=== PATIENT | female | born 1975 | race Caucasian/White ===

== ENCOUNTER 2016-11-18 13:34 | Emergency (ER) | payer BC ==
--- NOTE | 2016-11-18 14:26 | UC ---
Cardiac HPI - HPI Summary HPI Summary: This is an otherwise healthy 41 yo female who presents with c/o CP with intermittent L arm pain x 3d. She reports recent in the family which has caused a significant amount of stress. No associated cough, n/v/d. No recent illness. No exacerbating or relieving factors. Reports assoc dyspnea. - History of Current Complaint Chief Complaint: UCChestPain Stated Complaint: CHEST PAIN, NUMBNESS IN ARM - Allergy/Home Medications Allergies/Adverse Reactions: Allergies Allergy/AdvReac Type Severity Reaction Status Date / Time No Known Allergies Allergy Verified 03/16/15 15:47 PMH/Surg Hx/FS Hx/Imm Hx Previously Healthy: Yes Endocrine History Of: Denies: Diabetes Cardiovascular History Of: Denies: Pacemaker/ICD GI/ History Of: Denies: Renal Disease Cancer History Of: Denies: Breast Cancer - Surgical History Surgical History: Yes Surgery Procedure, Year, and Place: fibroids removed. appendix - Family History Known Family History: Positive: Hypertension Family History: NON CONTRIBUTORY - Social History Alcohol Use: Rare Substance Use Type: None Smoking Status (MU): Never Smoked Tobacco Review of Systems Constitutional: Negative Skin: Negative Eyes: Negative ENT: Negative Respiratory: Shortness Of Breath Cardiovascular: Chest Pain Gastrointestinal: Negative Genitourinary: Negative Motor: Negative Neurovascular: Negative Musculoskeletal: Negative Neurological: Negative Psychological: Anxious All Other Systems Reviewed And Are Negative: Yes Physical Exam Triage Information Reviewed: Yes Vital Signs: Initial Vital Signs Temp 97.3 F 11/18/16 13:38 Vital Signs Reviewed: Yes Respiratory Exam: Normal Respiratory: Positive: Chest non-tender, Lungs clear, Normal breath sounds Cardiovascular Exam: Normal Cardiovascular: Positive: RRR, No Murmur Abdomen Description: Positive: Nontender Diagnostics - EKG Cardiac Rate: NL Cardiac Rhythm: Sinus: Normal Ectopy: None ST Segment: Normal Re-Evaluation - Re-Evaluation First Eval Re-Evaluation Time: 14:30 Change: Unchanged Comment: Reviewed recommendations with patient's - Assessment/Plan Course Of Treatment: Recommended patient proceed to ED for further evaluation. She is stable without ST segment changes. The fact that her symptoms have been persistent for 3 days without EKG changes makes this less likely to be ACS, but PE or pericarditis are high on the differential which can not be adequately evaluated in the urgent care setting - Differential Diagnoses - Chest Pain Differential Diagnosis/HQI/PQRI: ACS, Chest Wall, Pulmonary Edema, Pulmonary Embolism - Clinical Impression Provider Diagnoses: 1. Chest pain - Physician Notifications Discussed Patient Care With: Matthew Rai MD Time Discussed With Above Provider: 14:30 Instructed by Provider To: MD Will See In ED Discharge - Discharge Plan Condition: Stable Disposition: OTHER Discharge Disposition Comment: [facility] Emergency Department Referrals: Susannah Miller MD [Primary Care Provider] - Additional Instructions: 1. Please proceed to the EMERGENCY DEPARTMENT 2. You require evaluation for life threatening heart/lung conditions
== END 2016-11-18 14:30 ==
LOC: UCEAST 13:34
DX: R07.89 Other chest pain (principal); M79.602 Pain in left arm
CPT/HCPCS: 99211; G0463

== ENCOUNTER 2016-11-18 15:29 | Emergency (ER) | payer BC ==
[2016-11-18 16:44] LABS: Hematocrit 35 % (35-47); Hemoglobin 11.2 g/dl (12.0-16.0); Mean Corpuscular HGB Conc 32 g/dl (31-36); Mean Corpuscular Hemoglobin 24 pg (27-31); Mean Corpuscular Volume 76 fL (80-97); Mean Platelet Volume 7 um3 (7.4-10.4); Red Blood Count 4.58 10^6/ul (4.0-5.4); Red Cell Distribution Width 15 % (10.5-15); White Blood Count 10.6 10^3/ul (3.5-10.8)
[2016-11-18 17:01] LABS: Troponin I 0.01 ng/mL (<0.04)
[2016-11-18 17:14] LABS: Albumin 3.9 g/dL (3.2-5.2); BUN/Creatinine Ratio 25.4 (8-20); Calcium 9.2 mg/dL (8.6-10.3); EGFR African American 125.4 (>60); EGFR Non-African American 97.5 (>60); Globulin 3.2 g/dL (2-4); Potassium 3.8 mmol/L (3.5-5.0); Total Bilirubin 0.4 mg/dL (0.2-1.0); Total Protein 7.1 g/dL (6.4-8.9)
--- NOTE | 2016-11-18 17:39 | RAD ---
INDICATION: LEFT side chest pain. History of pneumonia. COMPARISON: September 22, 2010 CT chest. TECHNIQUE: Dual energy PA and routine lateral views of the chest were obtained. REPORT: Bilateral first costochondral calcifications noted. Clear lungs and pleural spaces. Negative for pneumothorax. The heart, pulmonary vasculature, and mediastinal contours are unremarkable. IMPRESSION: No evidence for acute intrathoracic disease.
[2016-11-18] MEDS ORDERED: HYDROcodone/ACETAMIN 5-325 MG* 1 TAB PO ONE ×2 (18:13→18:14)
--- NOTE | 2016-11-18 18:20 | ED ---
Feliberto Arce Michael, scribed for Jensen Estevez MD on 11/18/16 at 1623 . HPI Chest Pain - HPI Summary HPI Summary: 41 y/o female was referred to the ED from [facility] presenting with constant chest pain that started 3 days ago. The onset of chest pain was described as sharp and severe for 2 minutes. Since the initial onset, the chest pain has been constant and described as an ache. The pt reports that the chest pain is aggravated with palpation, deep breathes, and movement. The pain is not alleviated with ASA. She also states the pain radiates to her LUE. The pt also c /o SOB and DELGADO. Currently, the DELGADO has been spontaneously alleviated. She denies abd pain and bilateral LE swelling. The PMHx is significant for HTN. - History of Current Complaint Chief Complaint: EDChestPainROMI Time Seen by Provider: 11/18/16 16:17 Hx Obtained From: Patient, Medical Records Onset/Duration: Started Days Ago, Still Present Timing: Constant Initial Severity: Moderate Current Severity: Moderate Pain Intensity: 7 Pain Scale Used: 0-10 Numeric Chest Pain Location: Left Anterior Chest Pain Radiates: Yes Chest Pain Radiates To:: Arm - LUE Character: Dull/Aching, Sharp/Stabbing Aggravating Factor(s): Movement, Deep Breaths, Other: - palpation Alleviating Factor(s): Nothing Associated Signs and Symptoms: Positive: Negative - bilateral LE swelling, Chest Pain, Headaches, Shortness of Breath. Negative: Abdominal Pain - Allergy/Home Medications Allergies/Adverse Reactions: Allergies Allergy/AdvReac Type Severity Reaction Status Date / Time No Known Allergies Allergy Verified 11/18/16 15:33 PMH/Surg Hx/FS Hx/Imm Hx Endocrine/Hematology History: Denies: Hx Diabetes Cardiovascular History: Reports: Hx Hypertension Denies: Hx Pacemaker/ICD History: Denies: Hx Dialysis, Hx Renal Disease Sensory History: Denies: Hx Hearing Aid Psychiatric History: Denies: Hx Panic Disorder - Cancer History Hx Chemotherapy: No Hx Radiation Therapy: No - Surgical History Surgery Procedure, Year, and Place: fibroids removed. appendix Infectious Disease History: No Infectious Disease History: Denies: History Other Infectious Disease, Traveled Outside the [place] in Last 30 Days - Family History Known Family History: Positive: Hypertension - Social History Occupation: Employed Full-time Lives: With Family Alcohol Use: Rare Substance Use Type: Reports: None Smoking Status (MU): Never Smoked Tobacco Review of Systems Negative: Fever Positive: Chest Pain Positive: Shortness Of Breath Negative: Abdominal Pain Negative: Edema - bilateral LE Positive: Headache All Other Systems Reviewed And Are Negative: Yes Physical Exam Triage Information Reviewed: Yes Vital Signs On Initial Exam: Initial Vitals Temp Pulse Resp BP Pulse Ox 98.0 F 86 18 140/82 100 11/18/16 15:31 11/18/16 15:31 11/18/16 15:31 11/18/16 15:31 11/18/16 15:31 Vital Signs Reviewed: Yes Appearance: Positive: Pain Distress, Obese Skin: Positive: Warm, Skin Color Reflects Adequate Perfusion, Dry Head/Face: Positive: Normal Head/Face Inspection Eyes: Positive: Normal ENT: Positive: Normal ENT inspection Neck: Positive: Supple, Nontender Respiratory/Lung Sounds: Positive: Clear to Auscultation, Breath Sounds Present Cardiovascular: Positive: RRR Abdomen Description: Positive: Nontender, Soft Bowel Sounds: Positive: Present Musculoskeletal: Positive: Other - tender left anterior lateral chest wall Neurological: Positive: Normal Psychiatric: Positive: Normal, Affect/Mood Appropriate Diagnostics - Vital Signs Vital Signs Temp Pulse Resp BP Pulse Ox 11/18/16 15:31 98.0 F 86 18 140/82 100 - Laboratory Lab Results: Lab Results 11/18/16 11/18/16 11/18/16 Range/Units 16:17 16:17 16:17 WBC 10.6 (3.5-10.8) 10^3/ul RBC 4.58 (4.0-5.4) 10^6/ul Hgb 11.2 L (12.0-16.0) g/dl Hct 35 (35-47) % MCV 76 L (80-97) fL MCH 24 L (27-31) pg MCHC 32 (31-36) g/dl RDW 15 (10.5-15) % Plt Count 279 (150-450) 10^3/ul MPV 7 L (7.4-10.4) um3 Neut % (Auto) 65.9 (38-83) % Lymph % (Auto) 26.6 (25-47) % [place] % (Auto) 5.7 (1-9) % Eos % (Auto) 1.5 (0-6) % Baso % (Auto) 0.3 (0-2) % Absolute Neuts (auto) 7.0 (1.5-7.7) 10^3/ul Absolute Lymphs (auto) 2.8 (1.0-4.8) 10^3/ul Absolute Monos (auto) 0.6 (0-0.8) 10^3/ul Absolute Eos (auto) 0.2 (0-0.6) 10^3/ul Absolute Basos (auto) 0 (0-0.2) 10^3/ul Absolute Nucleated RBC 0 10^3/ul Nucleated RBC % 0 INR (Anticoag Therapy) 0.93 (0.89-1.11) D-Dimer, Quantitative < 200 (Less Than 230) ng/mL Sodium 136 (133-145) mmol/L Potassium 3.8 (3.5-5.0) mmol/L Chloride 105 (101-111) mmol/L Carbon Dioxide 26 (22-32) mmol/L Anion Gap 5 (2-11) mmol/L BUN 17 (6-24) mg/dL Creatinine 0.67 (0.51-0.95) mg/dL Est GFR ( Amer) 125.4 (>60) Est GFR (Non-Af Amer) 97.5 (>60) BUN/Creatinine Ratio 25.4 H (8-20) Glucose 102 H (70-100) mg/dL Lactic Acid (0.5-2.0) mmol/L Calcium 9.2 (8.6-10.3) mg/dL Total Bilirubin 0.40 (0.2-1.0) mg/dL AST 15 (13-39) U/L ALT 24 (7-52) U/L Alkaline Phosphatase 57 (34-104) U/L Troponin I 0.01 (<0.04) ng/mL Total Protein 7.1 (6.4-8.9) g/dL Albumin 3.9 (3.2-5.2) g/dL Globulin 3.2 (2-4) g/dL Albumin/Globulin Ratio 1.2 (1-3) // Range/Units 16:17 WBC (3.5-10.8) 10^3/ul RBC (4.0-5.4) 10^6/ul Hgb (12.0-16.0) g/dl Hct (35-47) % MCV (80-97) fL MCH (27-31) pg MCHC (31-36) g/dl RDW (10.5-15) % Plt Count (150-450) 10^3/ul MPV (7.4-10.4) um3 Neut % (Auto) (38-83) % Lymph % (Auto) (25-47) % [place] % (Auto) (1-9) % Eos % (Auto) (0-6) % Baso % (Auto) (0-2) % Absolute Neuts (auto) (1.5-7.7) 10^3/ul Absolute Lymphs (auto) (1.0-4.8) 10^3/ul Absolute Monos (auto) (0-0.8) 10^3/ul Absolute Eos (auto) (0-0.6) 10^3/ul Absolute Basos (auto) (0-0.2) 10^3/ul Absolute Nucleated RBC 10^3/ul Nucleated RBC % INR (Anticoag Therapy) (0.89-1.11) D-Dimer, Quantitative (Less Than 230) ng/mL Sodium (133-145) mmol/L Potassium (3.5-5.0) mmol/L Chloride (101-111) mmol/L Carbon Dioxide (22-32) mmol/L Anion Gap (2-11) mmol/L BUN (6-24) mg/dL Creatinine (0.51-0.95) mg/dL Est GFR ( Amer) (>60) Est GFR (Non-Af Amer) (>60) BUN/Creatinine Ratio (8-20) Glucose (70-100) mg/dL Lactic Acid 1.1 (0.5-2.0) mmol/L Calcium (8.6-10.3) mg/dL Total Bilirubin (0.2-1.0) mg/dL AST (13-39) U/L ALT (7-52) U/L Alkaline Phosphatase (34-104) U/L Troponin I (<0.04) ng/mL Total Protein (6.4-8.9) g/dL Albumin (3.2-5.2) g/dL Globulin (2-4) g/dL Albumin/Globulin Ratio (1-3) Result Diagrams: 11/18/16 16:17 11/18/16 16:17 Lab Statement: Any lab studies that have been ordered have been reviewed, and results considered in the medical decision making process. - Radiology CXR Xray Interpretation: No Acute Changes Radiology Interpretation Completed By: Radiologist - EKG EK EKG Rhythm: Sinus Rhythm - [address] Segment: Normal Ectopy: None EKG Comparison: No Significant Change - from 01/09/16 Chest Pain Course/Dx - Course Course Of Treatment: Lauren Arnold presented with the acute onset of a spasm- type, sharp pain in her left chest accompanied by SOB which woke her up 3 nights ago. She has had a dull ache in the same area ever since which is exacerbated by moving her left arm around and taking a very deep breath. She was found to have reproducible chest wall tenderness and a normal W/U here including a d-dimer. Her Well's criteria is essentially 0. - Diagnoses Provider Diagnoses: Chest wall pain Discharge - Discharge Plan Condition: Stable Disposition: HOME Prescriptions: HYDROcodone/ACETAMIN 5-325 MG* [[place] 5-325 TAB*] 1 tab PO Q6H PRN #20 tab MDD 4 PRN Reason: Pain Patient Education Materials: Chest Wall Pain (ED) Referrals: Susannah Miller MD [Primary Care Provider] - Additional Instructions: You will follow up with Dr. Miller within the next 2-3 days. The documentation as recorded by the Feliberto shields Michael accurately reflects the service I personally performed and the decisions made by , Jensen Estevez MD.
[2016-11-18 18:40] VITALS: BP 150/86
[2016-11-19 04:11] LABS: C Reactive Protein 12.05 mg/L (< 5.00)
== END 2016-11-18 18:41 | disposition home or self-care (01) ==
LOC: ED 15:29
DX: R07.9 Chest pain, unspecified (principal); R06.02 Shortness of breath; R51 Headache; I10 Essential (primary) hypertension; M79.602 Pain in left arm
CPT/HCPCS: 36415; 71020; 80053; 83605; 84484; 85025; 85379; 85610; 86140; 93005; 99211; 99282; G0463

== ENCOUNTER 2017-04-08 18:29 | Emergency (ER) | payer BC ==
[2017-04-08 18:49] VITALS: BP 133/70
--- NOTE | 2017-04-08 19:44 | UC ---
UC General HPI - HPI Summary HPI Summary: PT HAD EMBRYO IMPLANTATION TODAY WITH DR. BENTON IN [place] ([facility] WAS CALLED LATER IN THE DAY AND TOLD SHE NEEDED PROGESTERONE SUPPLEMENTATION. IS HERE WITH MEDICATION LOOKING FOR ASSISTANCE WITH INJECTION. - History of Current Complaint Chief Complaint: UCGeneralIllness Stated Complaint: MED AMINISTRATION Time Seen by Provider: 04/08/17 19:11 Hx Obtained From: Patient Current Severity: None Associated Signs & Symptoms: Positive: Other - NONE - Allergy/Home Medications Allergies/Adverse Reactions: Allergies Allergy/AdvReac Type Severity Reaction Status Date / Time No Known Allergies Allergy Verified 11/18/16 15:33 Home Medications: Home Medications Aspirin [Eq Aspirin] 325 mg PO 04/08/17 [History] Vitamin [Calna] 1 tab PO 04/08/17 [History] PMH/Surg Hx/FS Hx/Imm Hx Previously Healthy: Yes - Surgical History Surgical History: Yes Surgery Procedure, Year, and Place: fibroids removed. appendix - Family History Known Family History: Positive: Hypertension - Social History Alcohol Use: Rare Substance Use Type: None Smoking Status (MU): Never Smoked Tobacco Review of Systems Constitutional: Negative Respiratory: Negative Cardiovascular: Negative Gastrointestinal: Negative All Other Systems Reviewed And Are Negative: Yes Physical Exam Triage Information Reviewed: Yes Appearance: Well-Appearing, No Pain Distress, Well-Nourished Vital Signs: Initial Vital Signs Temp 97.8 F 04/08/17 18:38 Pulse 74 04/08/17 18:38 Resp 18 04/08/17 18:38 BP 133/70 04/08/17 18:38 Pulse Ox 99 04/08/17 18:38 Vital Signs Reviewed: Yes Eyes: Positive: Conjunctiva Clear ENT: Positive: Hearing grossly normal Neck: Positive: Supple Respiratory: Positive: No respiratory distress, No accessory muscle use Cardiovascular: Positive: Pulses Normal Abdomen Description: Positive: Soft Musculoskeletal: Positive: No Edema Neurological: Positive: Alert Psychological: Positive: Age Appropriate Behavior Skin: Negative: rashes Course/Dx - Differential Dx - Multi-Symptom Provider Diagnoses: MEDICATION INJECTION Discharge - Discharge Plan Condition: Stable Disposition: HOME Referrals: Susannah Miller MD [Primary Care Provider] - 1 Day Additional Instructions: 50MG (1ML) OF PROGESTERONE OIL INTRAMUSCULAR INJECTION TO RIGHT GLUTEUS MUSCLE TODAY AT 7:30PM. PLEASE CALL DR. BENTON'S OFFICE TOMORROW TO CONFIRM HOW MANY DAYS YOU ARE SUPPOSED TO BE INJECTING THIS MEDICINE. CALL DR. MILLER'S OFFICE TOMORROW TO SEE IF YOU CAN SCHEDULE NURSE VISITS FOR FUTURE INJECTIONS.
== END 2017-04-08 19:45 | disposition home or self-care (01) ==
LOC: UCEAST 18:29
DX: E34.9 Endocrine disorder, unspecified (principal)
CPT/HCPCS: 96372; 99211; G0463

== ENCOUNTER 2019-01-19 16:43 | Emergency (ER) | payer BC ==
--- NOTE | 2019-01-19 17:58 | ED ---
HPI Chest Pain - HPI Summary HPI Summary: A 43 y/o [place] [facility] [place] with CP onset middle of the night. The pain woke her from sleep and radiates to her L shoulder and back. Associated sx: elevated BP, severe DELGADO, photophobia, tenderness to scalp and face skin, subjective fever. Denies chills, n/v, pedal edema. She's tried OTC medications to no relief. Aggravating factors: movement. She takes Amlodipine BID. She sees Dr. Whiteside, PCP, at [facility]. She notes her mom has similar sx when she began menopause at age 43. - History of Current Complaint Chief Complaint: EDChestPainROMI Time Seen by Provider: 01/19/19 17:49 Hx Obtained From: Patient Onset/Duration: Started Hours Ago, Atraumatic, Still Present Timing: Constant Initial Severity: Moderate Current Severity: Severe Pain Intensity: 9 Pain Scale Used: 0-10 Numeric Chest Pain Radiates: Yes Chest Pain Radiates To:: Back, Shoulder - L shoulder Aggravating Factor(s): Movement Associated Signs and Symptoms: Positive: Headaches, Fever - subjective, Other: - pos: elevated BP, photophobia, tenderness to scalp/face. neg: chills. Negative: Nausea, Vomiting, Edema - Allergy/Home Medications Allergies/Adverse Reactions: Allergies Allergy/AdvReac Type Severity Reaction Status Date / Time No Known Allergies Allergy Verified 11/18/16 15:33 Home Medications: Home Medications Aspirin TAB* [Aspirin 325 MG TAB*] 325 mg PO DAILY 01/19/19 [History Confirmed 01/19/19] Cholecalciferol TAB* [Vitamin D TAB*] 400 unit PO DAILY 01/19/19 [History Confirmed 01/19/19] Vitamin E Mixed [Vitamin E] 1,000 unit PO DAILY 01/19/19 [History Confirmed ] amLODIPine TAB* [Norvasc 5 mg TAB*] 2.5 mg PO BID 01/19/19 [History Confirmed ] PMH/Surg Hx/FS Hx/Imm Hx Previously Healthy: No Endocrine/Hematology History: Denies: Hx Diabetes Cardiovascular History: Reports: Hx Hypertension Denies: Hx Pacemaker/ICD Respiratory History: Reports: Other Respiratory Problems/Disorders - PNEUMONIA History: Denies: Hx Dialysis, Hx Renal Disease Sensory History: Denies: Hx Hearing Aid Psychiatric History: Denies: Hx Panic Disorder - Cancer History Hx Chemotherapy: No Hx Radiation Therapy: No - Surgical History Surgery Procedure, Year, and Place: fibroids removed. appendix Infectious Disease History: No Infectious Disease History: Denies: History Other Infectious Disease, Traveled Outside the [place] in Last 30 Days - Family History Known Family History: Positive: Hypertension - Social History Occupation: Employed Full-time - SELF Lives: With Family Alcohol Use: Rare Hx Substance Use: No Substance Use Type: Reports: None Hx Tobacco Use: No Smoking Status (MU): Never Smoked Tobacco Review of Systems Positive: Fever - subjective. Negative: Chills Positive: Photophobia Positive: Chest Pain, Other - pos: elevated BP Negative: Vomiting, Nausea Negative: Edema Positive: Headache All Other Systems Reviewed And Are Negative: Yes Physical Exam - Summary Physical Exam Summary: Constitutional: Well-developed, Well-nourished, Alert. (-) Distressed Skin: Warm, Dry HENT: Normocephalic; Atraumatic. Mild tenderness to scalp bilaterally. Eyes: Conjunctiva normal Neck: Musculoskeletal ROM normal neck. (-) JVD, (-) Stridor, (-) Tracheal deviation Cardio: Rhythm regular, rate normal, Heart sounds normal; Intact distal pulses; The pedal pulses are 2+ and symmetric. Radial pulses are 2+ and symmetric. (-) Murmur Pulmonary/Chest wall: Effort normal. (-) Respiratory distress, (-) Wheezes, (-) Rales. Tenderness to chest wall. Abd: Soft, (-) tenderness, (-) Distension, (-) Guarding, (-) Rebound Musculoskeletal: (-) Edema. Tenderness to L shoulder, limited ROM L shoulder. Lymph: (-) Cervical adenopathy Neuro: Alert, Oriented x3 Psych: Mood and affect Normal Triage Information Reviewed: Yes Vital Signs On Initial Exam: Initial Vitals Temp Pulse Resp BP Pulse Ox 97.9 F 77 18 145/105 99 01/19/19 16:48 01/19/19 16:48 01/19/19 16:48 01/19/19 16:48 01/19/19 16:48 Vital Signs Reviewed: Yes Diagnostics - Vital Signs Vital Signs Temp Pulse Resp BP Pulse Ox 01/19/19 16:48 97.9 F 77 18 145/105 99 - Laboratory Result Diagrams: 01/19/19 18:07 01/19/19 18:07 Lab Statement: Any lab studies that have been ordered have been reviewed, and results considered in the medical decision making process. - Radiology CXR Radiology Interpretation Completed By: ED Physician Summary of Radiographic Findings: No acute process. - EKG 192 Cardiac Rate: NL - 80 bpm EKG Rhythm: Sinus Rhythm Summary of EKG Findings: Normal sinus rhythm at 80 bpm, normal ID, normal QRS, normal QTc, normal axis, normal ST, normal T-waves, normal EKG. Re-Evaluation - Re-Evaluation 1 Re-Evaluation Time: 20:09 Change: Improved Comment: Discussing results with pt. She appears better. Will give her Flexeril. Chest Pain Course/Dx - Course Course Of Treatment: Pt is a 43 y/o F [place] [facility] [place] with CP onset in the middle of the night. The pain woke her from sleep and radiates to her L shoulder and back. Associated sx: elevated BP, severe DELGADO, photophobia, tenderness to scalp and face skin, subjective fever. CXR shows no acute process. Lab work shows low Hgb, MCV, MCH, MPV; elevated CRP and BUN/C ratio. EKG is NSR at 80bpm, normal EKG. Will discharge patient home. - Diagnoses Provider Diagnoses: Chest pain, Headache, Neck pain Discharge - Sign-Out/Discharge Documenting (check all that apply): Patient Departure - D/C Patient Received Moderate/Deep Sedation with Procedure: No - Discharge Plan Condition: Improved Disposition: HOME Prescriptions: Cyclobenzaprine TAB* [Flexeril 10 MG TAB*] 10 mg PO TID PRN #15 tab PRN Reason: Pain Patient Education Materials: Chest Pain (ED), Neck Pain (ED) Print Language: VIETNAMESE Referrals: Susannah Miller MD [Primary Care Provider] - - Billing Disposition and Condition Condition: IMPROVED Disposition: Home - Attestation Statements Document Initiated by Scribe: Yes Documenting Scribe: Alexander Vincent Provider For Whom Scribe is Documenting (Include Credential): Dr. April Sylvester MD Scribe Attestation: Claude, Alexander Vincent, scribed for Dr. April Sylvester MD on at 2339. Scribe Documentation Reviewed: Yes Provider Attestation: The documentation as recorded by the scribe, Adeelg Carlton accurately reflects the service I personally performed and the decisions made by me, Dr. April Sylvester MD Status of Scribe Document: Viewed
[2019-01-19] MEDS ORDERED: Aspirin 81 mg CHEW TAB* 81 MG TAB.CHEW PO ONE (18:18)
[2019-01-19 18:25] LABS: ABS Basophils 0.1 10^3/ul (0-0.2); ABS Eosinophils 0.1 10^3/ul (0-0.6); ABS Lymphocytes 2.7 10^3/ul (1.0-4.8); ABS Monocytes 0.7 10^3/ul (0-0.8); ABS Neutrophils 5.2 10^3/ul (1.5-7.7); ABS Nucleated RBC 0 10^3/ul; Eosinophil % 1.7 %; Hematocrit 35 % (33-41); Hemoglobin 11.4 g/dL (12.0-16.0); Lymphocyte % 30.7 %; Mean Corpuscular HGB Conc 33 g/dL (31-36); Mean Corpuscular Hemoglobin 25 pg (27-31); Mean Corpuscular Volume 77 fL (80-97); Mean Platelet Volume 7.3 fL (7.4-10.4); Nucleated Red Blood Cells % 0.1; Platelet Count 293 10^3/uL (150-450); Red Blood Count 4.51 10^6 /uL (3.70-4.87); Red Cell Distribution Width 15 % (10.5-15); White Blood Count 8.8 10^3/uL (3.5-10.8)
[2019-01-19 18:45] LABS: ALT 28 U/L (7-52); AST 18 U/L (13-39); Albumin/Globulin Ratio 1.3 (1-3); Alkaline Phosphatase 67 U/L (34-104); Anion Gap 6 mmol/L (2-11); BUN/Creatinine Ratio 24.1 (8-20); Blood Urea Nitrogen 13 mg/dL (6-24); C Reactive Protein 8.26 mg/L (<8.01); CO2 Carbon Dioxide 25 mmol/L (22-32); Calcium 9.1 mg/dL (8.6-10.3); Chloride 106 mmol/L (101-111); EGFR African American 149.8 (>60); EGFR Non-African American 123.8 (>60); Globulin 3.1 g/dL (2-4); Glucose 91 mg/dL (70-100); Magnesium 2.3 mg/dL (1.9-2.7); Potassium 4.6 mmol/L (3.5-5.0); Sodium 137 mmol/L (135-145); Total Protein 7.1 g/dL (6.4-8.9)
[2019-01-19 18:50] LABS: HCG Pregnancy < 0.60 mIU/mL
[2019-01-19] MEDS ORDERED: Ketorolac INJ* 30 MG/ML 1 ML VIAL IV PUSH ONE (19:43)
[2019-01-19] MEDS ORDERED: Ibuprofen TAB* 600 MG PO ONE (19:59)
[2019-01-19] MEDS ORDERED: Cyclobenzaprine TAB* 10 MG PO ONE (20:14)
[2019-01-19 20:16] VITALS: BP 144/76
[2019-01-19 23:37] LABS: Erythrocyte Sed Rate 46 mm/Hr (0-20)
== END 2019-01-19 20:35 | disposition home or self-care (01) ==
LOC: ED 16:43
DX: R07.89 Other chest pain (principal); R51 Headache; M54.2 Cervicalgia; H53.149 Visual discomfort, unspecified; R50.9 Fever, unspecified; I10 Essential (primary) hypertension
CPT/HCPCS: 36415; 71045; 80053; 83605; 83735; 84443; 84484; 84702; 85025; 85652; 86140; 93005; 99283; A9270-GY